=== PATIENT | male | born 1985 | race Caucasian/White ===

== ENCOUNTER 2020-06-19 10:32 | Emergency (ER) | payer BC, MEDICAID ==
[~2020-06-19] VITALS: Ht 165.1 cm; Wt 84.1 kg
[~2020-06-19 10:32] MED LIST: ALBU8HFA PO; PRED50TA PO
[2020-06-19 11:04] VITALS: BP 122/75
== END 2020-06-19 11:32 | disposition home or self-care (01) ==
LOC: ER 10:32
DX: R05 Cough (principal); R50.9 Fever, unspecified; M79.18 Myalgia, other site; R51 Headache; Z20.828 Contact with and (suspected) exposure to other viral communicable diseases; Z79.899 Other long term (current) drug therapy
CPT/HCPCS: 36415; 87635; 99283